=== PATIENT | male | born 1985 | race African-American/Black ===

== ENCOUNTER 2020-02-08 10:04 | Emergency (ER) | payer SELFPAY ==
[~2020-02-08] VITALS: Ht 188 cm; Wt 118.0 kg
[2020-02-08 10:07] VITALS: BP 152/95
--- NOTE | 2020-02-08 10:22 | PHYS DOC ---
Past Medical History Past Medical History: No Pertinent History (BAILEY MARTINES APRN) Past Surgical History: No Surgical History (BAILEY MARTINES APRN) Smoking Status: Current Every Day Smoker Alcohol Use: None Drug Use: None (BAILEY MARTINES APRN) Adult General Chief Complaint Chief Complaint: OTHER COMPLAINTS [facility] HPI Patient is a 34 year old male who presents wanting a work note. The patient states that last Thursday he had a cough and a fever. He states symptoms have since subsided. The patient states he used TheraFlu and that made the symptoms go away. The patient states that he has not had any symptoms in last 72 hours. Denies fever, shortness of breath. Denies any medical history. Complete ROS were reviewed and found to be within normal limits, except as do cumented in the HPI (BAILEY MARTINES APRN) Allergies Allergies Allergies Coded Allergies Type Severity Reaction Last Updated Verified No Known Drug Allergies 11/25/18 No (HUEY BONILLA DO) Physical Exam Physical Exam Constitutional: Well developed, well nourished, no acute distress, non-toxic appearance. [] Neurologic: Alert and oriented X 3, normal motor function, normal sensory function, no focal deficits noted. [] Psychologic: Affect normal, judgement normal, mood normal. [] (BAILEY MARTINES APRN) Current Patient Data Vital Signs Vital Signs Date Time Temp Pulse Resp B/P (MAP) Pulse Ox O2 Delivery O2 Flow Rate FiO2 02/08/20 10:07 98.5 98 16 152/95 (114) 98 Room Air 98.5 (HUEY BONILLA DO) EKG EKG [] (BAILEY MARTINES APRN) Radiology/Procedures Radiology/Procedures [] (BAILEY MARTINES APRN) Course & Med Decision Making Course & Med Decision Making Pertinent Labs and Imaging studies reviewed. (See chart for details) Patient is presented to the ER for work note. I am unable to test the patient for coronavirus as this is what his employer wants him cleared for. However the patient denied symptoms for the last 72 hours and per guidelines after being symptom-free for 72 hours they recommend that he can go back to work. (BAILEY MARTINES APRN) Dragon Disclaimer Dragon Disclaimer This electronic medical record was generated, in whole or in part, using a voice recognition dictation system. (BAILEY MARTINES APRN) Attending Signature I have participated in the care of this patient and I have reviewed and agree with all pertinent clinical information above including history, exam, and recommendations. (HUEY BONILLA DO) Departure Departure Impression: Primary Impression: Cough Disposition: HOME, SELF-CARE Condition: STABLE Referrals: NO PCP (PCP) Patient Instructions: Form - Return To Work Additional Instructions: Thank you for visiting [facility]. We appreciate you trusting us with your care. If any additional problems come up don't hesitate to return to visit us. Please follow up with your primary care provider so they can plan additional care if needed and know about the problem that you had. If symptoms worsen come back to the Emergency Department. Any concerning symptoms that start such as chest pain, shortness of air, weakness or numbness on one side of the body, running high fevers or any other concerning symptoms return to the ER. We are unable to test you for coronavirus due to lack of symptoms. Current guidelines recommend that after you are symptom-free for 72 hours you can return to work. Patient has said that he is symptom-free for 72 hours and can return to work. BAILEY MARTINES APRN Feb 08, 2020 10:21 HUEY BONILLA DO Feb 08, 2020 14:35
== END 2020-02-08 10:33 | disposition home or self-care (01) ==
LOC: ER 10:04
DX: R05 Cough (principal); R50.9 Fever, unspecified; F17.200 Nicotine dependence, unspecified, uncomplicated
CPT/HCPCS: 99281

== ENCOUNTER 2020-03-28 09:06 | Emergency (ER) | payer SELFPAY ==
[~2020-03-28] VITALS: Ht 182.9 cm; Wt 100.0 kg
[2020-03-28] MEDS ORDERED: HALOPERIDOL LACTATE 5 MG/ML VIAL. IVP ONE (09:30)
[2020-03-28] MEDS ORDERED: MIDAZOLAM HCL/PF 5 MG/5 ML VIAL. NS ONE (09:30)
--- NOTE | 2020-03-28 09:30 | RAD ---
CT HEAD AND CERVICAL SPINE WO Date: 03/28/2020 9:06 AM Clinical Indication: Trauma, overdose, altered mental status Comparison: None. Technique: 5 mm axial tomographic images were obtained of the head without contrast. These were viewed on brain and bone windows. CT imaging of the cervical spine was performed without contrast. Coronal and sagittal reformatted images were performed. One or more of the following dose reduction techniques were utilized: Automated exposure control (AEC), Adjustment of mA and/or kV according to patient size, Use of iterative reconstruction technique such as ASiR, CT scan done according to ALARA and image gently/image wisely HEAD FINDINGS: The brain parenchyma is normal in attenuation. No intra- or extra-axial mass or fluid collection. No acute hemorrhage. The ventricles are normal in size, shape, and morphology. The siu-white matter junction is normal. The basilar cisterns are patent. The visualized paranasal sinuses are normal. The visualized portions of the orbits and globes are normal. The mastoid air cells are clear. No aggressive osseous lesion or fracture. CERVICAL SPINE FINDINGS: The cervical spine is normally aligned. No acute fracture. No aggressive lytic or blastic osseous lesion. Mild multilevel degenerative disc height loss. No high-grade spinal canal stenosis or neural foraminal narrowing. The thyroid gland is normal. No cervical lymphadenopathy. The visualized aerodigestive tract is unremarkable. The visualized lung apices are clear. IMPRESSION: 1. No acute intracranial process. 2. No acute osseous abnormality of the cervical spine. Electronically signed by: Mark Ashraf MD (03/28/2020 9:27 AM) [id number]
[2020-03-28 09:45] LABS: BASO # 0.1 x10^3/uL (0.0-0.2); BASO % 1 % (0-3); EOS # 0.1 x10^3/uL (0.0-0.7); EOS % 1 % (0-3); HEMATOCRIT 46.3 % (39.0-53.0); HEMOGLOBIN 15.2 g/dL (13.0-17.5); LYMPH # 2.4 x10^3/uL (1.0-4.8); LYMPH % 34 % (24-48); MEAN CORPUSCULAR HEMOGLOBIN 29 pg (25-35); MEAN CORPUSCULAR HGB CONC 33 g/dL (31-37); MEAN CORPUSCULAR VOLUME 89 fL (79-100); MONO # 0.9 x10^3/uL (0.0-1.1); MONO % 13 % (0-9); NEUT # 3.7 x10^3/uL (1.8-7.7); NEUT % 52 % (31-73); PLATELET COUNT 202 x10^3/uL (140-400); RED BLOOD COUNT 5.23 x10^6/uL (4.30-5.70); RED CELL DISTRIBUTION WIDTH 16.4 % (11.5-14.5); WHITE BLOOD COUNT 7.1 x10^3/uL (4.0-11.0)
[2020-03-28 09:53] LABS: BARBITURATES NEG (NEG); BENZODIAZEPINES NEG (NEG); CANNABINOIDS NEG (NEG); COCAINE NEG (NEG); METHADONE NEG (NEG); OPIATES NEG (NEG); PHENCYCLIDINE POS (NEG)
--- NOTE | 2020-03-28 09:54 | RAD ---
INDICATION: Shortness of air COMPARISON: November 25, 2018 FINDINGS: Single view of chest obtained. Hypoexpanded examination. Groundglass and interstitial opacities bilaterally which are moderate in severity. Tortuous aortic contour. IMPRESSION: * Interstitial and groundglass opacities bilaterally which could be seen with bilateral infiltrate or edema. * Cardiac mediastinal silhouette is prominent with tortuous aortic contour. A portion of this could be secondary to technical factors but it may be helpful to obtain a formal PA and lateral chest radiograph to ensure that there is not real enlargement of the mediastinum. Electronically signed by: Kevin Santoyo MD (03/28/2020 9:51 AM) [id number]
[2020-03-28 10:00] LABS: AMPHETAMINE/METHAMPHETAMINE NEG (NEG)
--- NOTE | 2020-03-28 10:12 | PHYS DOC ---
Past Medical History Past Medical History: No Pertinent History Past Surgical History: No Surgical History Smoking Status: Current Every Day Smoker Alcohol Use: None Drug Use: None Social History Narrative: unknown Adult General Chief Complaint Chief Complaint: ALTERED MENTAL STATUS HPI HPI Patient is a 34 year old -Citizen Of [place] male with history of PCP abuse who presents with witnessed seizure episode while at bus stop. Blood sugar is 80. Patient lucid but combative on ED arrival and requiring ketamine for restraints. Patient found to have drug paraphernalia, weapons. Patient required 250 mg of IM ketamine for sedation to facilitate transportation to hospital. Patient sedated arrival brought initially to CT scanner. [] Review of Systems Review of Systems ROS limited due to AMS All other systems were reviewed and found to be within normal limits, except as documented in this note. Current Medications Current Medications Current Medications Medications (Trade) Dose Ordered Sig/Eber Start Time Stop Time Status Last Admin Dose Admin Haloperidol Lactate (Haldol Inj) 5 mg 1X ONCE 03/28/20 09:30 03/28/20 09:31 DC 03/28/20 09:55 5 MG Midazolam HCl (Versed) 5 mg 1X ONCE 03/28/20 09:30 03/28/20 09:31 DC 03/28/20 09:22 5 MG Allergies Allergies Allergies Coded Allergies Type Severity Reaction Last Updated Verified No Known Drug Allergies 11/25/18 No Physical Exam Physical Exam Constitutional: Sedated, sonorous breathing, no response to painful stimuli [] HENT: Normocephalic, atraumatic, bilateral external ears normal, oropharynx moist, nose normal. [] Eyes: Pupils pinpoint,, conjunctiva injected.. [] Neck: Normal range of motion, no tenderness, supple, no stridor. [] Cardiovascular:Heart rate regular rhythm, no murmur [] Lungs & Thorax: Bilateral breath sounds clear to auscultation [] Abdomen: Bowel sounds normal, soft, no tenderness. [] Skin: Warm, dry. [] Back: No tendernes. [] Extremities: No tenderness, no edema. [] Neurologic: Sedated, spontaneous movement of all extremities. [] Psychologic: Affect normal, judgement normal, mood normal. [] Current Patient Data Vital Signs Vital Signs Date Time Temp Pulse Resp B/P (MAP) Pulse Ox O2 Delivery O2 Flow Rate FiO2 03/28/20 09:57 126 24 98 03/28/20 09:06 98.1 175/89 (117) NonRebreather Mask 15.0 98.1 Lab Values Laboratory Tests Test 03/28/20 09:29 03/28/20 09:34 White Blood Count 7.1 x10^3/uL (4.0-11.0) Red Blood Count 5.23 x10^6/uL (4.30-5.70) Hemoglobin 15.2 g/dL (13.0-17.5) Hematocrit 46.3 % (39.0-53.0) Mean Corpuscular Volume 89 fL (79-100) Mean Corpuscular Hemoglobin 29 pg (25-35) Mean Corpuscular Hemoglobin Concent 33 g/dL (31-37) Red Cell Distribution Width 16.4 % (11.5-14.5) H Platelet Count 202 x10^3/uL (140-400) Neutrophils (%) (Auto) 52 % (31-73) Lymphocytes (%) (Auto) 34 % (24-48) Monocytes (%) (Auto) 13 % (0-9) H Eosinophils (%) (Auto) 1 % (0-3) Basophils (%) (Auto) 1 % (0-3) Neutrophils # (Auto) 3.7 x10^3/uL (1.8-7.7) Lymphocytes # (Auto) 2.4 x10^3/uL (1.0-4.8) Monocytes # (Auto) 0.9 x10^3/uL (0.0-1.1) Eosinophils # (Auto) 0.1 x10^3/uL (0.0-0.7) Basophils # (Auto) 0.1 x10^3/uL (0.0-0.2) D-Dimer (Rachel) 0.31 ug/mlFEU (0.00-0.50) Sodium Level 144 mmol/L (136-145) Potassium Level 4.1 mmol/L (3.5-5.1) Chloride Level 106 mmol/L (98-107) Carbon Dioxide Level 23 mmol/L (21-32) Anion Gap 15 (6-14) H Blood Urea Nitrogen 17 mg/dL (8-26) Creatinine 1.5 mg/dL (0.7-1.3) H Estimated GFR (Cockcroft-Gault) 64.1 BUN/Creatinine Ratio 11 (6-20) Glucose Level 122 mg/dL (70-99) H Calcium Level 8.3 mg/dL (8.5-10.1) L Ferritin 21 ng/mL (26-388) L Total Bilirubin 0.3 mg/dL (0.2-1.0) Aspartate Amino Transferase (AST) 34 U/L (15-37) Alanine Aminotransferase (ALT) 66 U/L (16-63) H Alkaline Phosphatase 82 U/L (46-116) Troponin I Quantitative < 0.017 ng/mL (0.000-0.055) C-Reactive Protein, Quantitative 3.5 mg/L (0-3.3) H UY-Vdu-Q-Type Natriuretic Peptide 10 pg/mL (0-124) Total Protein 7.1 g/dL (6.4-8.2) Albumin 3.6 g/dL (3.4-5.0) Albumin/Globulin Ratio 1.0 (1.0-1.7) Urine Opiates Screen Neg (NEG) Urine Methadone Screen Neg (NEG) Urine Barbiturates Neg (NEG) Urine Phencyclidine Screen Pos (NEG) Urine Amphetamine/Methamphetamine Neg (NEG) Urine Benzodiazepines Screen Neg (NEG) Urine Cocaine Screen Neg (NEG) Urine Cannabinoids Screen Neg (NEG) Urine Ethyl Alcohol Neg (NEG) Laboratory Tests 03/28/20 09:29 Laboratory Tests 03/28/20 09:29 EKG EKG [EKG: reviewed] Radiology/Procedures Radiology/Procedures [CT head/cervical spine: No acute findings per radiology report. CXR: pulmonary infiltrate] Course & Med Decision Making Course & Med Decision Making Pertinent Labs and Imaging studies reviewed. (See chart for details) [Patient initially required soft restraints and further sedation with Versed and Haldol to facilitate cooperation. While in the emergency department the patient returned to baseline mental status. He acknowledges smoking PCP and K2 prior to symptom onset. Patient remains hypoxic with O2 sats in upper 80s with findings of groundglass infiltrates and right middle lobe infiltrate on chest x- ray. Patient reports cough and shortness of breath over the past 2 days. No fe linda chills or sweats. Unknown COVID exposure] Dragon Disclaimer Dragon Disclaimer This electronic medical record was generated, in whole or in part, using a voice recognition dictation system. Departure Departure Impression: Primary Impression: Pneumonitis Additional Impressions: Seizure PCP abuse Disposition: ADMITTED INPATIENT Condition: IMPROVED Referrals: NO PCP (PCP) Problem Qualifiers OSEAS VU DO March 28, 2020 10:12
[2020-03-28 10:51] LABS: CALCIUM 8.3 mg/dL (8.5-10.1); CREATININE 1.5 mg/dL (0.7-1.3); GFR 64.1; POTASSIUM 4.1 mmol/L (3.5-5.1)
[2020-03-28 10:57] LABS: ALBUMIN 3.6 g/dL (3.4-5.0); TOTAL BILIRUBIN 0.3 mg/dL (0.2-1.0); TOTAL PROTEIN 7.1 g/dL (6.4-8.2)
[2020-03-28 11:29] LABS: C-REACTIVE PROTEIN 3.5 mg/L (0-3.3)
--- NOTE | 2020-03-28 11:52 | EKG ---
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
[2020-03-28 12:00] VITALS: BP 134/64
[2020-03-28] MEDS ORDERED: ONDANSETRON PF 4 MG/2 ML VIAL. IV PRN (12:00)
[2020-03-28] MEDS ORDERED: AZITHRMYCN 500MG IVPB FOR OMNI 250 ML IV ONE (12:00)
[2020-03-28] MEDS ORDERED: cefTRIAXone IV Push 1 GM VIAL. IVP ONE (12:00)
--- NOTE | 2020-03-30 09:43 | NUR ---
IP: Pt is COVID negative.
== END 2020-03-28 12:10 | disposition other institution (70) ==
LOC: ER 09:06
DX: J18.9 Pneumonia, unspecified organism (principal); R56.9 Unspecified convulsions; F17.200 Nicotine dependence, unspecified, uncomplicated; F16.10 Hallucinogen abuse, uncomplicated
CPT/HCPCS: 36415; 70450; 71045; 72125; 80053; 80307; 82728; 83880; 84484; 85025; 85379; 86140; 93005; 96374; 99285; J1630; J2250; U0003-CS